=== PATIENT | female | born 2000 | race Caucasian/White ===

== ENCOUNTER 2020-10-02 09:27 | Emergency (ER) | payer BC ==
[~2020-10-02] VITALS: Ht 167.6 cm; Wt 63.5 kg
[2020-10-02] MEDS ORDERED: ROXICODONE5 M2 PO (09:47)
[2020-10-02] MEDS ORDERED: FLEXERIL PO (09:48)
[2020-10-02] MEDS ORDERED: KEFLEX500 M1 PO (10:15)
[2020-10-02 10:26] VITALS: BP 134/72
[2020-10-02] MEDS ORDERED: BACTRIM DS TAB1 EACH PO (20:46)
[2020-10-02] MEDS ORDERED: HYDROCODON-ACE1 EAC8 PO (20:47)
[2020-10-02] MEDS ORDERED: ZOFRAN ODT4 MG PO (20:47)
== END 2020-10-02 10:26 | disposition home or self-care (01) ==
LOC: M.ERS 09:27
DX: L03.115 Cellulitis of right lower limb (principal)

== ENCOUNTER 2020-10-02 18:57 | Emergency (ER) | payer BC ==
[~2020-10-02] VITALS: Ht 149.9 cm; Wt 72.6 kg
[~2020-10-02 18:57] MED LIST: FLEXERIL PO; KEFLEX500 M1 PO; ROXICODONE5 M2 PO
[2020-10-02 19:42] LABS: ABSOLUTE EOSINOPHILS 0.2 thou/uL (0.0-0.7); ABSOLUTE MONOCYTES 0.6 thou/uL (0.0-1.2); BASOPHILS 0.4 %; HEMATOCRIT 41.1 % (37.0-47.0); HEMOGLOBIN 13.7 gm/dL (12.0-15.0); LYMPHOCYTES 18.4 %; MCH 30.2 pg (26.0-34.0); MCHC 33.4 g/dL (28.0-37.0); MCV 90.2 fL (80.0-100.0); MONOCYTES 5.6 %; MPV 7.4 fl. (7.2-11.1); NUCLEATED RBCS 0 /100WBC; PLATELET COUNT* 243 thou/uL (150-400); POLYS 73.6 %; RBC 4.56 mil/uL (4.20-5.00); RDW-CV 13.4 % (10.5-14.5); WBC 10.8 thou/uL (4.0-11.0)
[2020-10-02 19:51] LABS: CALCIUM 9.3 mg/dL (8.5-10.1); CREATININE 0.8 mg/dL (0.6-1.3); POTASSIUM 4.3 mmol/L (3.5-5.1)
[2020-10-02 19:53] LABS: PROTIME 9.5 Seconds (9.20-11.50)
[2020-10-02 19:56] LABS: ALBUMIN 3.4 g/dL (3.4-5.0); TOTAL BILIRUBIN 0.3 mg/dL (<0.1-1.0); TOTAL PROTEIN 6.8 g/dL (6.4-8.2)
[2020-10-02 20:01] LABS: INR < 0.9
[2020-10-02] MEDS ORDERED: BACTRIM DS TAB1 EACH PO (20:46)
[2020-10-02] MEDS ORDERED: HYDROCODON-ACE1 EAC8 PO (20:47)
[2020-10-02] MEDS ORDERED: ZOFRAN ODT4 MG PO (20:47)
[2020-10-02 21:26] VITALS: BP 112/70
== END 2020-10-02 21:27 | disposition home or self-care (01) ==
LOC: M.ERS 18:57
PROVIDERS: Emergency Medicine
DX: T63.301A Toxic effect of unspecified spider venom, accidental (unintentional), initial encounter (principal); R11.0 Nausea; Y92.89 Other specified places as the place of occurrence of the external cause

== ENCOUNTER 2020-10-13 14:26 | Emergency (ER) | payer OTHER ==
[~2020-10-13] VITALS: Ht 149.9 cm; Wt 72.6 kg
[~2020-10-13 14:26] MED LIST changes: +BACTRIM DS TAB1 EACH PO; +HYDROCODON-ACE1 EAC8 PO; +ZOFRAN ODT4 MG PO
[2020-10-13] MEDS ORDERED: PERCOCET 10-321 EAC1 PO (14:36)
[2020-10-13] MEDS ORDERED: CLONAZEPAM 0.50.5 M1 PO (14:36)
[2020-10-13] MEDS ORDERED: TESSALON PERLE100 MG PO (15:33)
[2020-10-13] MEDS ORDERED: APAP W/CODEINE1 TA2 PO (15:33)
[2020-10-13 15:49] VITALS: BP 132/91
== END 2020-10-13 15:50 | disposition home or self-care (01) ==
LOC: M.ERS 14:26
DX: U07.1 COVID-19 (principal); Z79.899 Other long term (current) drug therapy

== ENCOUNTER 2021-05-18 14:37 | Emergency (ER) | payer OTHER ==
[~2021-05-18] VITALS: Ht 149.9 cm; Wt 68.0 kg
[~2021-05-18 14:37] MED LIST changes: +APAP W/CODEINE1 TA2 PO; +CLONAZEPAM 0.50.5 M1 PO; +PERCOCET 10-321 EAC1 PO; +TESSALON PERLE100 MG PO
[2021-05-18] MEDS ORDERED: FLEXERIL PO (14:55)
[2021-05-18] MEDS ORDERED: XANAX2 MG PO (14:55)
[2021-05-18 15:36] LABS: URINE BILIRUBIN NEGATIVE (Negative); URINE BLOOD TRACE (Negative); URINE CLARITY CLEAR; URINE COLOR YELLOW; URINE GLUCOSE-RANDOM NEGATIVE (Negative); URINE KETONES NEGATIVE (Negative); URINE LEUKOCYTES-REFLEX NEGATIVE (Negative); URINE NITRITE-REFLEX NEGATIVE (Negative); URINE PROTEIN NEGATIVE (Negative); URINE SPECIFIC GRAVITY >= 1.030 (1.005-1.030); URINE UROBILINOGEN 0.2 E.U./dl (0.2-1.0)
[2021-05-18 15:52] LABS: ABSOLUTE BASOPHILS 0.1 thou/uL (0.0-0.2); ABSOLUTE EOSINOPHILS 0.3 thou/uL (0.0-0.7); ABSOLUTE LYMPHOCYTES 1.7 thou/uL (0.8-5.3); ABSOLUTE MONOCYTES 0.9 thou/uL (0.0-1.2); ABSOLUTE NEUTROPHILS 7.5 thou/uL (1.6-8.1); EOSINOPHILS 2.4 %; HEMATOCRIT 43.1 % (37.0-47.0); HEMOGLOBIN 14.8 gm/dL (12.0-15.0); LYMPHOCYTES 16.6 %; MCH 31.4 pg (26.0-34.0); MCHC 34.3 g/dL (28.0-37.0); MCV 91.7 fL (80.0-100.0); MONOCYTES 8.2 %; MPV 7.5 fl. (7.2-11.1); NUCLEATED RBCS 0 /100WBC; PLATELET COUNT* 256 thou/uL (150-400); POLYS 71.8 %; RBC 4.71 mil/uL (4.20-5.00); RDW-CV 14.1 % (10.5-14.5); WBC 10.5 thou/uL (4.0-11.0)
[2021-05-18 16:01] LABS: CREATININE 0.8 mg/dL (0.6-1.3); POTASSIUM 4.3 mmol/L (3.5-5.1)
[2021-05-18 16:05] LABS: ALBUMIN 3.7 g/dL (3.4-5.0); TOTAL BILIRUBIN 0.3 mg/dL (<0.1-1.0); TOTAL PROTEIN 7.1 g/dL (6.4-8.2)
[2021-05-18 17:31] VITALS: BP 122/79
== END 2021-05-18 17:35 | disposition left against medical advice (07) ==
LOC: M.ERS 14:37
PROVIDERS: Nurse Practitioner Family
DX: R10.31 Right lower quadrant pain (principal); F17.210 Nicotine dependence, cigarettes, uncomplicated

== ENCOUNTER 2021-06-04 16:31 | Emergency (ER) | payer OTHER ==
[~2021-06-04] VITALS: Ht 149.9 cm; Wt 68.0 kg
[~2021-06-04 16:31] MED LIST changes: +XANAX2 MG PO
[2021-06-04 17:36] LABS: URINE BILIRUBIN NEGATIVE (Negative); URINE BLOOD 2+ (Negative); URINE CLARITY CLEAR; URINE COLOR YELLOW; URINE GLUCOSE-RANDOM NEGATIVE (Negative); URINE KETONES NEGATIVE (Negative); URINE LEUKOCYTES-REFLEX NEGATIVE (Negative); URINE NITRITE-REFLEX NEGATIVE (Negative); URINE PROTEIN NEGATIVE (Negative); URINE SPECIFIC GRAVITY <= 1.005 (1.005-1.030); URINE UROBILINOGEN 0.2 E.U./dl (0.2-1.0)
[2021-06-04 17:51] LABS: SQUAMOUS >10 Many /LPF (0-3)
[2021-06-04 17:52] LABS: CASTS None Seen /LPF (None Seen); CRYSTALS None Seen /LPF (None Seen)
[2021-06-04 17:54] LABS: BACTERIA-REFLEX >30 Many /HPF (None Seen); URINE RBC 0-2 Rare /HPF (0-2); URINE WBC-REFLEX 0-5 Rare /HPF (0-5)
[2021-06-04 18:47] LABS: ABSOLUTE BASOPHILS 0.1 thou/uL (0.0-0.2); ABSOLUTE EOSINOPHILS 0.2 thou/uL (0.0-0.7); ABSOLUTE LYMPHOCYTES 1.6 thou/uL (0.8-5.3); ABSOLUTE MONOCYTES 0.7 thou/uL (0.0-1.2); ABSOLUTE NEUTROPHILS 4.8 thou/uL (1.6-8.1); EOSINOPHILS 2.3 %; HEMATOCRIT 39.9 % (37.0-47.0); HEMOGLOBIN 13.8 gm/dL (12.0-15.0); LYMPHOCYTES 21.6 %; MCH 31.6 pg (26.0-34.0); MCHC 34.7 g/dL (28.0-37.0); MCV 91.2 fL (80.0-100.0); MONOCYTES 9.2 %; MPV 7.9 fl. (7.2-11.1); NUCLEATED RBCS 0 /100WBC; PLATELET COUNT* 250 thou/uL (150-400); POLYS 65.9 %; RBC 4.37 mil/uL (4.20-5.00); RDW-CV 13.5 % (10.5-14.5); WBC 7.3 thou/uL (4.0-11.0)
[2021-06-04 19:03] LABS: ALBUMIN 3.8 g/dL (3.4-5.0); CREATININE 0.7 mg/dL (0.6-1.3); POTASSIUM 3.8 mmol/L (3.5-5.1); TOTAL BILIRUBIN 0.2 mg/dL (<0.1-1.0); TOTAL PROTEIN 7.4 g/dL (6.4-8.2)
[2021-06-04] MEDS ORDERED: APAP W/CODEINE1 TA2 PO (20:17)
[2021-06-04] MEDS ORDERED: NAPROSYN500 MG PO (20:17)
[2021-06-04 20:48] VITALS: BP 132/88
== END 2021-06-04 20:48 | disposition home or self-care (01) ==
LOC: M.ERS 16:31
PROVIDERS: Physician Assistant
DX: R10.2 Pelvic and perineal pain (principal); R10.31 Right lower quadrant pain; Z32.02 Encounter for pregnancy test, result negative

== ENCOUNTER 2021-08-03 18:15 | Emergency (ER) | payer OTHER ==
[~2021-08-03] VITALS: Ht 149.9 cm; Wt 68.0 kg
[~2021-08-03 18:15] MED LIST changes: +NAPROSYN500 MG PO
[2021-08-03 20:49] LABS: ABSOLUTE BASOPHILS 0.1 thou/uL (0.0-0.2); ABSOLUTE EOSINOPHILS 0.2 thou/uL (0.0-0.7); ABSOLUTE LYMPHOCYTES 2.5 thou/uL (0.8-5.3); ABSOLUTE MONOCYTES 0.8 thou/uL (0.0-1.2); ABSOLUTE NEUTROPHILS 7.3 thou/uL (1.6-8.1); BASOPHILS 1.2 %; EOSINOPHILS 1.4 %; HEMATOCRIT 40.6 % (37.0-47.0); LYMPHOCYTES 23.2 %; MCH 30.6 pg (26.0-34.0); MCHC 34.4 g/dL (28.0-37.0); MONOCYTES 7.4 %; MPV 7.6 fl. (7.2-11.1); NUCLEATED RBCS 0 /100WBC; PLATELET COUNT* 283 thou/uL (150-400); POLYS 66.8 %; RBC 4.56 mil/uL (4.20-5.00); RDW-CV 13.9 % (10.5-14.5); WBC 10.9 thou/uL (4.0-11.0)
[2021-08-03 20:58] LABS: CALCIUM 9.2 mg/dL (8.5-10.1); CREATININE 0.8 mg/dL (0.6-1.3); POTASSIUM 3.7 mmol/L (3.5-5.1)
[2021-08-03 21:03] LABS: ALBUMIN 3.8 g/dL (3.4-5.0); TOTAL BILIRUBIN 0.2 mg/dL (<0.1-1.0); TOTAL PROTEIN 6.8 g/dL (6.4-8.2)
[2021-08-03] MEDS ORDERED: PHENERGAN 25 MG25 M1 PO (21:10)
[2021-08-03] MEDS ORDERED: FLEXERIL PO (21:10)
[2021-08-03 21:38] VITALS: BP 115/64
== END 2021-08-03 21:37 | disposition home or self-care (01) ==
LOC: M.ERS 18:15
PROVIDERS: Nurse Practitioner Family
DX: U07.1 COVID-19 (principal); Z79.899 Other long term (current) drug therapy

== ENCOUNTER 2021-08-09 23:15 | Emergency (ER) | payer OTHER ==
[~2021-08-09] VITALS: Ht 149.9 cm; Wt 68.0 kg
[~2021-08-09 23:15] MED LIST changes: +PHENERGAN 25 MG25 M1 PO
[2021-08-10 01:01] LABS: URINE BILIRUBIN NEGATIVE (Negative); URINE BLOOD 2+ (Negative); URINE CLARITY CLEAR; URINE COLOR YELLOW; URINE GLUCOSE-RANDOM NEGATIVE (Negative); URINE KETONES NEGATIVE (Negative); URINE LEUKOCYTES-REFLEX NEGATIVE (Negative); URINE NITRITE-REFLEX NEGATIVE (Negative); URINE PROTEIN NEGATIVE (Negative); URINE UROBILINOGEN 0.2 E.U./dl (0.2-1.0)
[2021-08-10 01:12] LABS: SQUAMOUS 0-3 Few /LPF (0-3); URINE RBC 3-10 Few /HPF (0-2); URINE WBC-REFLEX None Seen /HPF (0-5)
[2021-08-10 01:13] LABS: AMORPHOUS URATES Moderate /LPF (None Seen); BACTERIA-REFLEX 1-9 Few /HPF (None Seen); CASTS None Seen /LPF (None Seen); MUCUS 4-6 Moderate strn/LPF (None Seen)
[2021-08-10 01:40] VITALS: BP 132/68
[2021-08-10] MEDS ORDERED: ZOFRAN ODT4 MG PO (01:40)
== END 2021-08-10 01:42 | disposition home or self-care (01) ==
LOC: M.ERS 23:15
PROVIDERS: Personal Emergency Response Attendant
DX: B34.9 Viral infection, unspecified (principal); Z20.822 Contact with and (suspected) exposure to COVID-19

== ENCOUNTER 2022-01-04 17:16 | Emergency (ER) | payer OTHER ==
[~2022-01-04] VITALS: Ht 149.9 cm; Wt 68.0 kg
[2022-01-04] MEDS ORDERED: PENICILLIN VK500 MG PO (18:37)
[2022-01-04 18:55] VITALS: BP 127/72
== END 2022-01-04 18:56 | disposition home or self-care (01) ==
LOC: M.ERS 17:16
DX: J02.0 Streptococcal pharyngitis (principal); Z86.16 Personal history of COVID-19